=== PATIENT | female | born 1990 | race Caucasian/White ===

== ENCOUNTER 2020-04-22 14:04 | Emergency (ER) | payer MEDICAID ==
[~2020-04-22] VITALS: Ht 157.5 cm; Wt 57.0 kg
[2020-04-22] MEDS ORDERED: BIRTH CONTROL PILL (14:22)
[2020-04-22] MEDS ORDERED: LACTATED RINGERS 1,000 ML IV STA (15:37)
[2020-04-22 16:30] LABS: HEMOGLOBIN. 14.7 g/dL (12.0-16.0); MEAN CORPUSCULAR VOLUME 90.9 fL (81.0-99.0); PLATELET 232 x1000/uL (130-400); RED BLOOD CELL COUNT 4.72 mill/uL (4.2-5.4); RED CELL DISTRIBUTION WIDTH 12.2 % (11.6-14.6)
[2020-04-22 16:34] LABS: CHLORIDE 106 mEq/L (98-107)
[2020-04-22 16:39] LABS: HCG SCREEN NEGATIVE
[2020-04-22 17:40] LABS: PLATELET ESTIMATE NORMAL
[2020-04-22 17:49] LABS: CLARITY URINE CLEAR (CLEAR); COLOR URINE YELLOW (YELLOW); KETONES URINE NEGATIVE (NEGATIVE); LEUKOCYTE ESTERASE URINE NEGATIVE (NEGATIVE); NITRITE URINE NEGATIVE (NEGATIVE); OCCULT BLOOD URINE NEGATIVE (NEGATIVE); PROTEIN URINE NEGATIVE (NEGATIVE); SPECIFIC GRAVITY URINE 1.004 (1.005-1.030); UROBILINOGEN URINE 0.2 E.U./dL (0.2-1.0)
[2020-04-22 18:00] VITALS: BP 120/76
[2020-04-22] MEDS ORDERED: CEPH500C2 MT (18:12)
[2020-04-22] MEDS ORDERED: AZIT250T12 MT (18:12)
== END 2020-04-22 19:21 | disposition home or self-care (01) ==
LOC: ER 14:30
DX: R07.89 Other chest pain (principal); D72.829 Elevated white blood cell count, unspecified; E78.00 Pure hypercholesterolemia, unspecified; Z86.19 Personal history of other infectious and parasitic diseases
CPT/HCPCS: 36415; 71045; 80053; 81003; 83880; 84484; 84703; 85025; 85379; 93005; 96360; 99285; J7120